=== PATIENT | male | born 2000 | race Caucasian/White ===

== ENCOUNTER 2023-07-24 11:23 | Emergency (ER) | payer BC ==
[~2023-07-24] VITALS: Ht 170.2 cm; Wt 93.9 kg
[2023-07-24 11:42] VITALS: BP 122/78; PULSE 61; RESP 18; TEMP 97.7; O2SAT 98
[2023-07-24] MEDS ORDERED: OFLO5SOL27 LEFT EAR (12:35)
[2023-07-24] MEDS ORDERED: AMOX500C25 PO (12:36)
[2023-07-24] MEDS ORDERED: ACETAMINOPHEN EXTRA STRENGTH 500 MG TAB PO ONE (12:40)
[2023-07-24] MEDS ORDERED: KETOROLAC 30 MG/ML VIAL IM ONE (12:40)
== END 2023-07-24 13:10 | disposition home or self-care (01) ==
LOC: MED 11:23
DX: H60.92 Unspecified otitis externa, left ear (principal); Z79.899 Other long term (current) drug therapy
CPT/HCPCS: 99283; J1885